=== PATIENT | male | born 1955 | race Caucasian/White ===

== ENCOUNTER 2017-01-14 16:43 | Emergency (ER) | payer OTHER, BC ==
[~2017-01-14] VITALS: Ht 185.4 cm; Wt 108.2 kg
[2017-01-14 16:44] VITALS: TEMP 98.5
[2017-01-14] MEDS ORDERED: LEVOXYL0.025 MG PO (16:53)
[2017-01-14] MEDS ORDERED: EFFE25TA PO (16:54)
[2017-01-14] MEDS ORDERED: PRINZIDE 12.5 M1 TAB PO (16:54)
[2017-01-14 18:48] VITALS: BP 135/81; PULSE 84
== END 2017-01-14 18:48 | disposition home or self-care (01) ==
LOC: COL.ER 16:43
DX: S82.841A Displaced bimalleolar fracture of right lower leg, initial encounter for closed fracture (principal); I10 Essential (primary) hypertension; E03.9 Hypothyroidism, unspecified; W11.XXXA Fall on and from ladder, initial encounter
CPT/HCPCS: J2704; J7030